=== PATIENT | female | born 1950 | race Caucasian/White ===

== ENCOUNTER → 2021-04-03 | Outpatient (CLI) | payer MEDICARE ==
[~2021-04-03] MED LIST: ALEVE220 MG PO; ASPIRIN325 PO; BIOTIN2500 MCG PO; CO Q-10100 MG PO; COLACE 100 MG100 MG PO; COLACE100 MG PO; FLONASE 0.05%50 MCG NASAL; HYDROCODON-ACE1 EAC7 PO; HYDROCODONE-AP1 EAC6 PO; KLOR-CON M2020 MEQ PO; MAXZIDE-25 MG1 EACH PO; NEURONTIN 300300 M1 PO; NORCO 10-325 T1 EACH PO; OCUVITE SOFTGE1 EAC1 PO; ONDANSETRON HCL4 M2 PO; OXYCODONE HCL 55 MG PO; PAXIL10 MG; PHENERGAN 25 MG25 M1 PO; PRAVACHOL40 MG PO; PRILOSEC20 MG PO; TRANSDERM-SCO1 PATC1 TOP; VITAMIN B12 PO; VITAMIN D1000 UNI1 PO; XARELTO10 MG PO; ZYRTEC10 MG PO
== END ==
LOC: M.LAB 06:00
PROVIDERS: ATTEND Anesthesiology
DX: E87.6 Hypokalemia (principal)